=== PATIENT | male | born 1970 | race Caucasian/White ===

== ENCOUNTER 2024-01-13 09:43 | Day surgery (SDC) | payer BC ==
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
[~2024-01-13 09:43] MED LIST: LIDOCAINE 1% (10MG/ML) FOR IV START INTRADERMA PRN
[2024-01-13 10:19] VITALS: TEMP 97.5
[2024-01-13] MEDS: IV FLUID CONTINUATION 1,000 ML IV ONE ×2 (10:30→11:20)
[2024-01-13] MEDS: LACTATED RINGERS 1,000 ML IV SCH (10:32)
[2024-01-13] MEDS ORDERED: PROPOFOL 10 MG/ML 20 ML VIAL IV ONE (11:21)
[2024-01-13] MEDS ORDERED: LIDOCAINE 1% INJ 10MG/ML (20 ML MDV) ONE (11:21)
[2024-01-13 11:40] VITALS: RESP 16
[2024-01-13 11:56] VITALS: BP 98/61; PULSE 53
--- NOTE | 2024-01-13 12:29 | P.PCN ---
Date of Procedure: 01/13/24 Description of Procedure: PREOPERATIVE DIAGNOSIS: Colonoscopy screening. History of colon polyps POSTOPERATIVE DIAGNOSIS: Colonoscopy screening. History of colon polyps Diverticulosis, scattered. OPERATION: Colonoscopy to the cecum, ileocecal valve and appendiceal orifice. SURGEON: Debbie Lai MD. ANESTHESIA: MAC. INDICATIONS: The patient is a 53-year-old female who presents for colonoscopy screening. Benefits and risks were described and informed consent was obtained. DESCRIPTION OF PROCEDURE: The patient had undergone GoLytely prep. The patient had been brought into the operating room and laid in the left lateral decubitus position. After adequate intravenous sedation, the rectum was examined with 2% lidocaine jelly. No external hemorrhoids were encountered. The rectal tone was within normal limits. No lesions were palpated in the rectal vault. An Olympus colonoscope was advance d until the cecum, ileocecal valve and appendiceal orifice were clearly viewed. The prep was fair. Scattered diverticulosis was encountered. No colonic polyps were found. No evidence of focal colitis was found. Retroflexion of the scope demonstrated grade 1 internal hemorrhoids without active bleeding or inflammation. The colon was desufflated. The patient had tolerated the procedure well. Withdrawal time was over 6 minutes. FINDINGS: Aronchick preparation quality scale 2+ (1-5) Internal hemorrhoids, grade 1 No external prolapsed hemorrhoids. No arteriovenous malformations. No adenomatous polyps. No focal colitis. RECOMMENDATIONS: Lower endoscopy in 5 years, 2028 Plan - Discharge Summary Discharge Rx Participant: No New Discharge Prescriptions: Continue hydroCHLOROthiazide [Hydrodiuril] 50 mg PO DAILY amLODIPine [Norvasc] 5 mg PO DAILY traZODone HCL 100 mg PO HS Pristiq (Unk) 1 tab PO DAILY Montelukast [Singulair] 10 mg PO DAILY Losartan [Cozaar] 100 mg PO DAILY Rosuvastatin [Crestor] 20 mg PO DAILY Discharge Medication List Losartan [Cozaar] 100 mg PO DAILY 01/11/24 [History] Montelukast [Singulair] 10 mg PO DAILY 01/11/24 [History] Pristiq (Unk) 1 tab PO DAILY 01/11/24 [History] Rosuvastatin [Crestor] 20 mg PO DAILY 01/11/24 [History] amLODIPine [Norvasc] 5 mg PO DAILY 01/11/24 [History] hydroCHLOROthiazide [Hydrodiuril] 50 mg PO DAILY 01/11/24 [History] traZODone HCL 100 mg PO HS 01/11/24 [History] Follow up Appointment(s)/Referral(s): Debbie Lai MD [STAFF PHYSICIAN] - As Needed Patient Instructions/Handouts: Colonoscopy (DC) Activity/Diet/Wound Care/Special Instructions: Repeat colonoscopy 5 years, 2028 Discharge Disposition: HOME SELF-CARE
== END 2024-01-13 12:30 | disposition home or self-care (01) ==
LOC: ORWHC2ENDO 09:43
PROVIDERS: ATTEND Surgery Plastic and Reconstructive Surgery
DX: Z12.11 Encounter for screening for malignant neoplasm of colon (principal); K57.30 Diverticulosis of large intestine without perforation or abscess without bleeding; K64.0 First degree hemorrhoids; Z86.010 Personal history of colon polyps; I10 Essential (primary) hypertension; E78.5 Hyperlipidemia, unspecified; Z79.899 Other long term (current) drug therapy
CPT/HCPCS: 45378; J2001; J2704